=== PATIENT | female | born 1960 | race Caucasian/White ===

== ENCOUNTER → 2017-07-17 | Outpatient (CLI) | payer OTHER | END | disposition home or self-care (01) | LOC: C.LABSPEC 10:55 | PROVIDERS: ATTEND Nurse Practitioner Adult Health | DX: R33.9 Retention of urine, unspecified (principal) ==

== ENCOUNTER → 2017-08-01 | Outpatient (CLI) | payer OTHER ==
--- NOTE | 2017-08-01 10:08 | DIAGNOSTIC IMAGING REPORT ---
ABD/PELVIS NO IV OR ORAL CONT HISTORY: 57 years-old Female R33.9 Incomplete bladder oirfelaxJ62.9 Right flank painno latex acute right flank pain with concern for kidney stones. COMPARISON: None available. TECHNIQUE: Multiple axial CT images of the abdomen and pelvis were obtained without contrast. A dose lowering technique was used consistent with the principals of LELO. FINDINGS: There is minimal subsegmental atelectasis or scarring of the inferior segment lingula. No pneumoperitoneum identified. Imaged inferior cardiac chambers are within normal limits. Trace pericardial effusion. Evaluation of the solid abdominal organs is limited without the use of contrast. There is diffuse fatty infiltration of the liver. The spleen, gallbladder, pancreas and adrenal glands are within normal limits. 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 Bilateral kidneys are within normal limits without renal calculi or hydronephrosis. The bilateral ureters are unremarkable. There is mild wall thickening with surrounding stranding of the urinary bladder. Partially calcified uterine leiomyoma of the right fundal uterus measures 4.1 x 3.7 x 3.5 cm with additional calcified fibroids noted measuring up to 2.2 cm on the left. These appear to be either intramural or subserosal in location. No adnexal mass lesions identified. The abdominal aorta is normal in course and caliber with mild atherosclerotic plaquing. No bulky adenopathy. There is nonspecific prominent vascularity of the mons pubis suggesting venous collaterals, left greater than right. There is no bowel obstruction or focal bowel wall thickening identified. Large bowel and appendix appear to be within normal limits. There are postsurgical changes of the left inguinal region. The bones appear intact. Mild to moderate degenerative disc disease and facet arthropathy. IMPRESSION: 1. Mild wall thickening with surrounding inflammatory stranding of the urinary bladder may reflect cystitis. Correlate with urinalysis. No renal or ureteral calculi or obstructive uropathy. 2. Multiple uterine leiomyomas appear to be intramural or subserosal in location measuring up to 4.1 cm. 3. Normal appendix. The above report was generated using voice recognition software. It may contain grammatical, syntax or spelling errors. Electronically signed by: Larry Contreras M.D. 08/01/2017 10:07 AM Dictated Date/Time: 08/01/2017 9:57 AM
== END | disposition home or self-care (01) ==
LOC: C.CTS 09:25
PROVIDERS: ATTEND Nurse Practitioner Adult Health
DX: R33.9 Retention of urine, unspecified (principal); R10.9 Unspecified abdominal pain; R93.41 Abnormal radiologic findings on diagnostic imaging of renal pelvis, ureter, or bladder; D25.9 Leiomyoma of uterus, unspecified

== ENCOUNTER → 2017-09-03 | Outpatient (CLI) | payer OTHER ==
[~2017-09-03] MED LIST: ASPI81TA28 PO; CIPR1TAB11 PO; CLB200 PO; FLM4 PO; GABA-113 PO; INSDGI SC; NVLGIPEN SQ; SULF800T23 PO
== END | disposition home or self-care (01) ==
LOC: C.PAPS 10:21
PROVIDERS: ATTEND Obstetrics & Gynecology
DX: D25.9 Leiomyoma of uterus, unspecified (principal)

== ENCOUNTER → 2017-09-18 | Outpatient (CLI) | payer OTHER ==
[~2017-09-18] MED LIST changes: -CIPR1TAB11 PO; +FLUC100T4 PO; +LINE1TAB6 PO
--- NOTE | 2017-09-18 08:35 | DIAGNOSTIC IMAGING REPORT ---
L LOWER EXT NONJOINT W/O HISTORY: 57 years-old Female L FT ATT 1ST MET HEAD chronic soft tissue ulcer involves the plantar surface of the left first toe. History of diabetic neuropathy COMPARISON: None available TECHNIQUE: Multiplanar multisequence MRI of the left forefoot was obtained without contrast FINDINGS: The large [id number] special inspector images demonstrate artifact from metallic hardware involving the distal tibia. There is mild skin thickening with subcutaneous edema involving the plantar surface of the first digit at the level of the metatarsal phalangeal joint and proximal phalanx nicely seen on images 6 series 8 and 13 of series 6 measuring approximately 1.7 x 1.6 cm. No associated drainable fluid collection or abscess. The underlying marrow signal of the first digit appears preserved without evidence of osteomyelitis. There are mild degenerative changes of the first MTP joint and articulation of the hallux sesamoids with the first metatarsal head. There is moderate bone marrow edema with marginal spurring, joint space narrowing and chondral thinning involving the second metatarsal head. With mild flattening of the metatarsal head, nicely seen on image 13 series 9 and image 13 series 8. Mild metatarsophalangeal and interphalangeal degenerative changes are seen throughout the remaining digits. Dorsal and interosseous bands of the Lisfranc ligament are identified and are intact. There is moderate atrophy of the intrinsic musculature of the forefoot. No evidence of intermetatarsal bursitis or perineural fibrosis. Imaged flexor and extensor tendons appear intact. No evidence of plantar plate injury. IMPRESSION: 1. Mild skin thickening with mild adjacent subcutaneous edema involves the plantar surface of the first digit at the level of the metatarsophalangeal joint and proximal phalanx correlating with patient history of chronic skin ulcer. No drainable fluid collection, abscess or evidence of first digit osteomyelitis. 2. Moderate marrow edema with marginal spurring, and joint space narrowing involving the second metatarsal head is likely degenerative. Correlate with patient history and clinical examination to exclude post-traumatic etiology. 3. Moderate atrophy involves the intrinsic musculature of the forefoot, likely secondary to chronic denervation changes with diabetes mellitus. The above report was generated using voice recognition software. It may contain grammatical, syntax or spelling errors. Electronically signed by: Larry Contreras M.D. 09/18/2017 8:34 AM Dictated Date/Time: 09/18/2017 8:22 AM
--- NOTE | 2017-09-18 11:08 | Medical Consult ---
Consultation Date of Consultation: Sep 18, 2017. Attending Physician: Jeanette Arshad D.O. History of Present Illness pt presents for initial ID visit, recently had left foot culture that grew E. faecalis and C. albicans. She was placed on vanco last week due to h/o mrsa ( per pt, previously treated in [place]). She has a h/o of gi upset with bactrim, took 2 pills and had gi upset again so stopped. she has reported allergy to amoxicillin but states she can not remember allergy as it has been years since she has taken. She is currently not on abx. had some drainage previously from plantar foot, that culture grew Serritia and she was given levauin with resolution of drainage. foot is dry, no draiange, has neuropahty. no f/c. no abd apin now. all remaining ros reviewed and are negative. Social History Smoking Status: Current Some Day Smoker Drug Use: none Marital Status: Occupation Status: disabled Allergies Coded Allergies: Vancomycin (Verified Allergy, Mild, RASH, 08/20/17) Amoxicillin (Unverified Adverse Reaction, Mild, GI SYMPTOMS, 08/20/17) Sulfamethoxazole w/Trimethoprim (Verified Adverse Reaction, Mild, GI SYMPTOMS, 08/20/17) Physical Exam General Appearance: WD/WN, no apparent distress Head: normocephalic, atraumatic Eyes: normal inspection, EOMI Neck: supple Respiratory/Chest: normal breath sounds, no respiratory distress Cardiovascular: no edema Abdomen/GI: soft Extremities/Musculoskelatal: no calf tenderness, no pedal edema, + pertinent finding (left foot with callus, no draiange, no surroundng edemam erythema, warmth, no tenderness but has neuropahty) Neurologic/Psych: alert, oriented x 3 Skin: normal color, no rash Laboratory Results Item Value Date Time Gram Stain - Final Complete 09/09/17 1330 Ulcer Foot Left Assessment & Plan (1) Foot ulcer Assessment & Plan: discussed options with pt, she does not know pcn allergy, does not want IV abx. will place on fluconazole and zyvox, she states she has rx coverage. will follow in 4 weeks. continue local wound care
== END | disposition home or self-care (01) ==
LOC: C.MRI 07:16
PROVIDERS: ATTEND Emergency Medicine
DX: E11.621 Type 2 diabetes mellitus with foot ulcer (principal); L97.529 Non-pressure chronic ulcer of other part of left foot with unspecified severity

== ENCOUNTER 2017-09-25 09:40 | Emergency (ER) | payer OTHER ==
[~2017-09-25] VITALS: Ht 167.6 cm; Wt 82.0 kg
[2017-09-25 09:40] VITALS: Ht 167.6 cm; Wt 82.0 kg
[~2017-09-25 09:40] MED LIST changes: -SULF800T23 PO
[2017-09-25] MEDS ORDERED: KETOROLAC TROMETHAMINE 30 MG/ML VIAL IV STA (09:56)
[2017-09-25] MEDS ORDERED: NAPR-1169 PO (10:13)
[2017-09-25] MEDS ORDERED: INSU100I2 SC (10:13)
[2017-09-25 10:19] LABS: BASO % 0.2 %; BASO ABS # 0.02 K/uL (0-0.2); COMPLETE YES; EOS % 4.1 %; HEMATOCRIT 44.1 % (37-47); IG% 0.2 %; LYMPH % 13.4 %; LYMPH ABS # 1.61 K/uL (1.2-3.4); MEAN CELL VOLUME 97.8 fL (80-100); MEAN CORPUSCULAR HEMOGLOBIN 33.5 pg (25-34); MEAN CORPUSCULAR HGB CONC 34.2 g/dl (32-36); MONO % 8.3 %; NEUT % 73.8 %; PLATELET COUNT 269 K/uL (130-400); RED BLOOD COUNT 4.51 M/uL (4.2-5.4); WHITE BLOOD COUNT 12.01 K/uL (4.8-10.8)
--- NOTE | 2017-09-25 10:22 | EMERGENCY ROOM VISIT NOTE ---
History Report prepared by Rose: Conor Wallis Under the Supervision of: Dr. Sherwin Sorenson M.D. First contact with patient: 09:44 Stated Complaint: ILLNESS History of Present Illness The patient is a 57 year old female who presents to the Emergency Room with complaints of persistent urinary retention starting a couple of days ago as well as diarrhea. Additionally, she states that she has an infection in her left leg. The patient states that she was at wound clinic this morning, and she was given an antibiotic. She notes that she is also on Flomax for her urinary retention, and she has had a scope done. The patient reports that she has been having abdominal pain and diarrhea 6-7 times per day. The patients ulcer was evaluated by the wound clinic. Wound clinic did not send the patient here, and she came on her own for antibiotics. Wound clinic disagreed with her, and she came here for a second opinion. Source of History: patient Onset: a couple of days ago Position: other (global) Quality: other (urinary retention and diarrhea) Timing: other (persistent) Associated Symptoms: + diarrhea Note: Associated symptoms: Infection in leg Review of Systems See HPI for pertinent positives & negatives. A total of 10 systems reviewed and were otherwise negative. Past Medical & Surgical Medical Problems: (1) Foot ulcer Social History Smoking Status: Current Some Day Smoker Drug Use: none Marital Status: Occupation Status: disabled Current/Historical Medications Scheduled Aspirin (Aspirin Ec), 81 MG PO DAILY Fluconazole (Diflucan), 100 MG PO DAILY Gabapentin (Neurontin), 300 MG PO DAILY Insulin Glargine (Lantus), 62 UNITS SC BID Insulin Lispro (Human) (Humalog Kwikpen), 12 UNITS SC BID Linezolid (Zyvox), 600 MG PO BID Naproxen (Naprosyn), 500 MG PO BID Nitrofurantoin Monohyd Macrocr (Macrobid), 100 MG PO BID Tamsulosin HCl (Tamsulosin HCl), 0.4 MG PO DAILY Allergies Coded Allergies: Vancomycin (Verified Allergy, Mild, RASH, 08/20/17) Amoxicillin (Unverified Adverse Reaction, Mild, GI SYMPTOMS, 08/20/17) Sulfamethoxazole w/Trimethoprim (Verified Adverse Reaction, Mild, GI SYMPTOMS, 08/20/17) Physical Exam Vital Signs Date Time Temp Pulse Resp B/P (MAP) Pulse Ox O2 Delivery O2 Flow Rate FiO2 09/25/17 11:27 77 18 137/66 98 Room Air 09/25/17 09:57 36.4 78 18 145/70 98 Room Air 09/25/17 09:40 36.4 78 18 145/70 98 Room Air Physical Exam GENERAL: Patient is a healthy-appearing well-nourished female HEAD: Normocephalic atraumatic EYES: Ocular movements intact pupils equal and react to light OROPHARYNX mucous membranes are moist no exudates present no erythema or edema present NECK: Supple no nuchal rigidity CHEST: Good equal expansion LUNGS: Clear and equal to auscultation CARDIAC: Normal S1 and S2 ABDOMEN: Soft nontender no guarding BACK: No CVA tenderness EXTREMITIES: Quarter sized ulcer to the left base of the first distal metatarsal. No pain upon palpation normal muscle strength in all groups no clubbing cyanosis or edema NEURO: Patient is following commands and answering questions appropriately. Alert and oriented x3 Cranial Nerves 2-12 grossly intact Medical Decision & Procedures ER Provider Diagnostic Interpretation: Radiology results as stated below per my review and radiologist interpretation: ULTRASOUND KIDNEYS AND BLADDER CLINICAL HISTORY: Pelvic/bladder pain. COMPARISON STUDY: Abdominal CT dated 08/01/2017. TECHNIQUE: Real-time, grayscale, and color flow sonography of the kidneys and bladder is performed. Images are reviewed in the transverse and longitudinal planes. FINDINGS: Kidneys: The kidneys are normal in size and echotexture. The right kidney measures 11.4 cm in length and the left kidney measures 11.9 cm in length. There is no hydronephrosis. No shadowing renal calculi are identified. There is no sonographic evidence of contour deforming renal mass lesion. No perinephric fluid is identified. Bladder: The bladder is decompressed and grossly unremarkable. Ureteral jets were not seen. IMPRESSION: 1. The kidneys are normal in size and without hydronephrosis. 2. The bladder was decompressed and grossly unremarkable. Electronically signed by: Billy Smart M.D. 09/25/2017 10:47 AM Dictated Date/Time: 09/25/2017 10:41 AM KUB HISTORY: Pt c/o suprapubic pain COMPARISON: Abdomen and pelvis CT 08/01/2017. FINDINGS: The bowel gas pattern is unremarkable. There are no dilated loops of small bowel to suggest an obstruction. No renal calculi. No ureteral calculi. No pneumoperitoneum or pneumatosis. Calcified uterine fibroid is again noted within the right deep pelvis. This measures 3.8 cm. Moderate well-formed stool seen within the colon. IMPRESSION: No renal or ureteral stones. Calcified uterine fibroid is again noted. Electronically signed by: Jc Villagran M.D. 09/25/2017 11:02 AM Dictated Date/Time: 09/25/2017 11:00 AM Laboratory Results 09/25/17 10:05 Red Blood Count 4.51, Mean Corpuscular Volume 97.8, Mean Corpuscular Hemoglobin 33.5, Mean Corpuscular Hemoglobin Concent 34.2, Mean Platelet Volume 10.0, Neutrophils (%) (Auto) 73.8, Lymphocytes (%) (Auto) 13.4, Monocytes (%) (Auto) 8.3, Eosinophils (%) (Auto) 4.1, Basophils (%) (Auto) 0.2, Neutrophils # (Auto) 8.86, Lymphocytes # (Auto) 1.61, Monocytes # (Auto) 1.00, Eosinophils # (Auto) 0.49, Basophils # (Auto) 0.02 09/25/17 10:05 Test 09/25/17 10:05 09/25/17 10:15 09/25/17 12:02 White Blood Count 12.01 K/uL (4.8-10.8) Red Blood Count 4.51 M/uL (4.2-5.4) Hemoglobin 15.1 g/dL (12.0-16.0) Hematocrit 44.1 % (37-47) Mean Corpuscular Volume 97.8 fL (80-100) Mean Corpuscular Hemoglobin 33.5 pg (25-34) Mean Corpuscular Hemoglobin Concent 34.2 g/dl (32-36) Platelet Count 269 K/uL (130-400) Mean Platelet Volume 10.0 fL (7.4-10.4) Neutrophils (%) (Auto) 73.8 % Lymphocytes (%) (Auto) 13.4 % Monocytes (%) (Auto) 8.3 % Eosinophils (%) (Auto) 4.1 % Basophils (%) (Auto) 0.2 % Neutrophils # (Auto) 8.86 K/uL (1.4-6.5) Lymphocytes # (Auto) 1.61 K/uL (1.2-3.4) Monocytes # (Auto) 1.00 K/uL (0.11-0.59) Eosinophils # (Auto) 0.49 K/uL (0-0.5) Basophils # (Auto) 0.02 K/uL (0-0.2) RDW Standard Deviation 45.0 fL (36.4-46.3) RDW Coefficient of Variation 12.6 % (11.5-14.5) Immature Granulocyte % (Auto) 0.2 % Immature Granulocyte # (Auto) 0.03 K/uL (0.00-0.02) Anion Gap 6.0 mmol/L (3-11) Est Creatinine Clear Calc Drug Dose 55.9 ml/min Estimated GFR () 59.1 Estimated GFR (Non- 51.0 BUN/Creatinine Ratio 20.9 (10-20) Calcium Level 9.4 mg/dl (8.5-10.1) Total Bilirubin 0.4 mg/dl (0.2-1) Direct Bilirubin < 0.1 mg/dl (0-0.2) Aspartate Amino Transf (AST/SGOT) 14 U/L (15-37) Alanine Aminotransferase (ALT/SGPT) 35 U/L (12-78) Alkaline Phosphatase 111 U/L (45-117) Total Protein 7.6 gm/dl (6.4-8.2) Albumin 3.5 gm/dl (3.4-5.0) Lipase 178 U/L (73-393) Total Creatine Kinase 209 U/L (26-192) Urine Color ORANGE Urine Appearance TURBID (CLEAR) Urine pH 5.0 (4.5-7.5) Urine Specific [place] 1.024 (1.000-1.030) Urine Protein 2+ (NEG) Urine Glucose (UA) NEG (NEG) Urine Ketones NEG (NEG) Urine Occult Blood 3+ (NEG) Urine Nitrite NEG (NEG) Urine Bilirubin NEG (NEG) Urine Urobilinogen NEG (NEG) Urine Leukocyte Esterase LARGE (NEG) Urine WBC (Auto) >30 /hpf (0-5) Urine RBC (Auto) >30 /hpf (0-4) Urine Hyaline Casts (Auto) 1-5 /lpf (0-5) Urine Epithelial Cells (Auto) >30 /lpf (0-5) Urine Bacteria (Auto) NEG (NEG) Urine Pathogenic Casts /lpf (0) Urine Yeast (Auto) BUDDING (NONE PRSENT) Labs reviewed by ED physician. Medications Administered Medications (Trade) Dose Ordered Sig/Aaron Route Start Time Stop Time Status Last Admin Dose Admin Ketorolac Tromethamine (Toradol Inj) 30 mg NOW STAT IV 09/25/17 09:56 09/25/17 09:59 DC 09/25/17 10:07 30 MG Dalbavancin 1500 mg/Dextrose 325 ml @ 650 mls/hr TODAY@1145 IV 09/25/17 11:45 09/25/17 23:00 09/25/17 11:58 650 MLS/HR Ceftriaxone Sodium (Rocephin Inj) 1 gm NOW STAT IV 09/25/17 12:43 09/25/17 12:44 DC 09/25/17 12:55 1 GM ED Course 0944: Past medical records reviewed. The patient was evaluated in room B7. A complete history and physical examination was performed. 0956: Toradol 30mg IV 1010: I discussed the patient's case with Dr. Fajardo - Infectious Disease, and she recommends giving the patient a one time dose of IV Dalvance 1018: I reevaluated the patient, and she is agreeable to the Dalvance. 1108: I revaluated the patient, and she was doing much better 1145: Dalbavancin 1500mg/Dextrose 325ml @ 650ml/hr IV 1242: Upon reexamination the patient is doing well. I discussed results and treatment plan with the patient. She verbalizes agreement and understanding. The patient is ready for discharge. 1243: Rocephin 1gm IV Medical Decision Differential diagnosis: Etiologies such as cellulitis, abscess, MRSA infection, DVT, necrotizing fasciitis, dermatitis, drug eruption, as well as others were entertained. This is a 57-year-old female who presents to the emergency department complaining of needing antibiotics for a diabetic foot wound. The patient is currently on oral linezolid at home however is refusing to take it due to having diarrhea. She was being seen in wound clinic when she came to the emergency department for a second opinion that she did not wish to wait for infectious disease doctor to call back for wound clinic. The patient was observed for a total of 3 hours in the emergency department and at no time was she able to provide a stool sample. In addition serial abdominal examinations were performed on the patient in the emergency department and at no time did the patient exhibited a surgical abdomen. I explained to the patient that there is no IV fluids available due to the IV fluid shortage. She was given oral fluids to replenish herself in the emergency department. I also discussed the case with infectious disease who felt that the patient receive a one-time dose of IV Delvance with needed follow up in the clinic. In addition the patient is also complaining of urinary symptoms and has a large amount of blood in her urine. She has no evidence of stone on ultrasound. The patient was not happy she was not receiving IV fluids however I feel she is well enough to be discharged home. She will be placed on Macrobid at home and received Rocephin for her urine. I will note that the patient is early on fluconazole for yeast. Medication Reconcilliation Current Medication List: was personally reviewed by me Blood Pressure Screening Patient's blood pressure: Elevated blood pressure Blood pressure disposition: Elevated BP felt to be situational Consults Time Called: [phone] Consulting Physician: Dr. Fajardo - Infectious Disease Returned Call: [phone] I discussed the patient's case with Dr. Fajardo - Infectious Disease, and she recommends giving the patient a one time dose of IV Dalvance Impression Primary Impression: Foot ulcer Additional Impression: UTI (urinary tract infection) Scribe Attestation The scribe's documentation has been prepared under my direction and personally reviewed by me in its entirety. I confirm that the note above accurately reflects all work, treatment, procedures, and medical decision making performed by me. Departure Information Dispostion Home / Self-Care Prescriptions Nitrofurantoin Monohyd Macrocr (Macrobid) 100 Mg Cap 100 MG PO BID for 7 Days, #14 CAP Prov: Sherwin Sorenson MD 09/25/17 Referrals Rach Jiménez DO (PCP) Forms HOME CARE DOCUMENTATION FORM, IMPORTANT VISIT INFORMATION, WORK / SCHOOL INSTRUCTIONS Patient Instructions Diabetic Foot Ulcer Dc, ED UTI Cystitis Female, My [facility] Additional Instructions Follow up with Dr Beltran's office (Urology) Follow up with Dr Gibbs's office and wound clinic (ID) Radiographs and CTs will be reread by a radiologist in the morning. Culture results are usually available in approx 48 hours You have been examined and treated today on an emergency basis only. This is not a substitute for, or an effort to provide, complete comprehensive medical care. It is impossible to recognize and treat all injuries or illnesses in a single emergency department visit. It is therefore important that you follow up closely with Dr Jiménez. Call as soon as possible for an appointment. Thank you for your time and consideration. I look forward to speaking with you again soon. Please don't hesitate to call us if you have any questions. Problem Qualifiers Primary Impression: Foot ulcer Laterality: left Non-pressure ulcer stage: limited to breakdown of skin Qualified Codes: L97.521 - Non-pressure chronic ulcer of other part of left foot limited to breakdown of skin Additional Impression: UTI (urinary tract infection) Urinary tract infection type: acute cystitis Hematuria presence: with hematuria Qualified Codes: N30.01 - Acute cystitis with hematuria
[2017-09-25 10:36] LABS: ALT/SGPT 35 U/L (12-78); BLOOD UREA NITROGEN 24 mg/dl (7-18); BUN/CREATININE RATIO 20.9 (10-20); CALCIUM 9.4 mg/dl (8.5-10.1); CARBON DIOXIDE 27 mmol/L (21-32); CHLORIDE 106 mmol/L (98-107); CREATININE 1.17 mg/dl (0.60-1.20); GLUCOSE 113 mg/dl (70-99); SODIUM 139 mmol/L (136-145)
[2017-09-25 10:39] LABS: ALKALINE PHOSPHATASE 111 U/L (45-117); AST/SGOT 14 U/L (15-37)
--- NOTE | 2017-09-25 10:48 | DIAGNOSTIC IMAGING REPORT ---
ULTRASOUND KIDNEYS AND BLADDER CLINICAL HISTORY: Pelvic/bladder pain. COMPARISON STUDY: Abdominal CT dated 08/01/2017. TECHNIQUE: Real-time, grayscale, and color flow sonography of the kidneys and bladder is performed. Images are reviewed in the transverse and longitudinal planes. FINDINGS: Kidneys: The kidneys are normal in size and echotexture. The right kidney measures 11.4 cm in length and the left kidney measures 11.9 cm in length. There is no hydronephrosis. No shadowing renal calculi are identified. There is no sonographic evidence of contour deforming renal mass lesion. No perinephric fluid is identified. Bladder: The bladder is decompressed and grossly unremarkable. Ureteral jets were not seen. IMPRESSION: 1. The kidneys are normal in size and without hydronephrosis. 2. The bladder was decompressed and grossly unremarkable. Electronically signed by: Billy Smart M.D. 09/25/2017 10:47 AM Dictated Date/Time: 09/25/2017 10:41 AM
--- NOTE | 2017-09-25 11:04 | DIAGNOSTIC IMAGING REPORT ---
KUB HISTORY: Pt c/o suprapubic pain COMPARISON: Abdomen and pelvis CT 08/01/2017. FINDINGS: The bowel gas pattern is unremarkable. There are no dilated loops of small bowel to suggest an obstruction. No renal calculi. No ureteral calculi. No pneumoperitoneum or pneumatosis. Calcified uterine fibroid is again noted within the right deep pelvis. This measures 3.8 cm. Moderate well-formed stool seen within the colon. IMPRESSION: No renal or ureteral stones. Calcified uterine fibroid is again noted. Electronically signed by: Jc Villagran M.D. 09/25/2017 11:02 AM Dictated Date/Time: 09/25/2017 11:00 AM
[2017-09-25] MEDS ORDERED: DALBAVANCIN IV 1,500 MG in DEXTROSE 5% 250ML 250 ML IV SCH (11:45)
[2017-09-25 12:19] LABS: URINE APPEARANCE TURBID (CLEAR); URINE COLOR ORANGE; URINE EPITHELIAL CELL AUTO >30 /lpf (0-5); URINE NITRITE NEG (NEG); URINE SPECIFIC GRAVITY 1.024 (1.000-1.030); UROBILINOGEN NEG (NEG); ZZUR CULT IF INDIC CLEAN CATCH YES
[2017-09-25 12:21] LABS: MANUAL MICROSCOPIC REQUIRED? NO; REVIEW REQ? YES
[2017-09-25 12:22] LABS: URINE BILIRUBIN NEG (NEG)
[2017-09-25] MEDS ORDERED: CEFTRIAXONE SOD INJ 1 GM ADDVIAL IV STA (12:43)
[2017-09-25] MEDS ORDERED: NITR-5 PO (12:45)
[2017-09-25 13:58] VITALS: BP 141/70; PULSE 77; TEMP 36.4; O2SAT 98
--- NOTE | 2017-09-27 16:57 | Pharmacy Progress Note ---
ED Pharmacist Culture FollowUp Date of Service: Sep 27, 2017. Patient's urine cx from 09/25 is growing klebsiella pneumoniae and non-topher albicans yeast. She had been dx with UTI on 09/25 and discharged with new Rx for Nitrofurantoin 100mg BID x 7 days. The klebsiella pn is intermediate sensitivity to nitrofurantoin. Reviewed with Dr Sorenson, will have patient stop taking Nitrofurantoin and begin Keflex 500mg PO BID x 7 days. The non-topher albicans yeast may or may not be covered by the fluconazole that the patient was placed on by infectious disease. Oral options for treating non-topher albicans are limited. Plan is to continue the current treatment at this time. However results will forwarded to her Urologist at [facility]. I spoke with the patient today over the phone to explain the urine cx results. I explained she had klebsiella bacteria and yeast growing in the culture. I explained she was to stop taking the nitrofurantoin and we would call in a new Rx for her for Keflex. She requested the Rx be called to [facility] ), which I did. I spoke directly to the pharmacist to give the Rx for Keflex 500mg PO BID x 7 days, no refills, auth by Dr Sorensno. I attempted to contact the [facility] to notify them of the culture results however their office closed at 2 pm today and will not be open until Saturday. I did however fax over the culture results to [phone].
== END 2017-09-25 14:00 | disposition home or self-care (01) ==
LOC: EDBD 09:40 → C.EDB 09:42
DX: L97.521 Non-pressure chronic ulcer of other part of left foot limited to breakdown of skin (principal); N30.01 Acute cystitis with hematuria; R19.7 Diarrhea, unspecified; F17.200 Nicotine dependence, unspecified, uncomplicated; Z98.890 Other specified postprocedural states; Z79.82 Long term (current) use of aspirin

== ENCOUNTER → 2017-10-08 | Outpatient (CLI) | payer OTHER ==
[~2017-10-08] MED LIST changes: +CEPH500C PO; -CLB200 PO; +DALB1SOL; +INSU100I2 SC; +NAPR-1169 PO; -NVLGIPEN SQ
[2017-10-08 11:50] LABS: BASO % 0.4 %; BASO ABS # 0.04 K/uL (0-0.2); COMPLETE YES; EOS % 5.8 %; HEMATOCRIT 40.5 % (37-47); IG% 0.3 %; LYMPH % 18.4 %; LYMPH ABS # 1.83 K/uL (1.2-3.4); MEAN CELL VOLUME 98.5 fL (80-100); MEAN CORPUSCULAR HEMOGLOBIN 32.4 pg (25-34); MEAN CORPUSCULAR HGB CONC 32.8 g/dl (32-36); MEAN PLATELET VOLUME 10.5 fL (7.4-10.4); MONO % 9.1 %; PLATELET COUNT 271 K/uL (130-400); RED BLOOD COUNT 4.11 M/uL (4.2-5.4); WHITE BLOOD COUNT 9.92 K/uL (4.8-10.8)
[2017-10-08 12:07] LABS: URINE APPEARANCE TURBID (CLEAR); URINE BILIRUBIN NEG (NEG); URINE COLOR YELLOW; URINE EPITHELIAL CELL AUTO >30 /lpf (0-5); URINE NITRITE NEG (NEG); URINE SPECIFIC GRAVITY 1.023 (1.000-1.030); UROBILINOGEN NEG (NEG)
[2017-10-08 12:08] LABS: MANUAL MICROSCOPIC REQUIRED? NO; REVIEW REQ? YES
[2017-10-08 12:21] LABS: ALT/SGPT 26 U/L (12-78); AST/SGOT 13 U/L (15-37); BLOOD UREA NITROGEN 25 mg/dl (7-18); BUN/CREATININE RATIO 21.6 (10-20); CALCIUM 9.1 mg/dl (8.5-10.1); CARBON DIOXIDE 29 mmol/L (21-32); CHLORIDE 108 mmol/L (98-107); CREATININE 1.15 mg/dl (0.60-1.20); GLUCOSE 70 mg/dl (70-99); POTASSIUM 4.1 mmol/L (3.5-5.1); SODIUM 141 mmol/L (136-145)
[2017-10-08 12:25] LABS: RATIO 93.9 mcg/mg (0-30.0)
[2017-10-08 12:32] LABS: ALB/GLOB RATIO 0.9 (0.9-2); ALKALINE PHOSPHATASE 107 U/L (45-117); CHOLESTEROL 216 mg/dl (0-200); CHOLESTEROL/HDL RATIO 5.1; HDL CHOLESTEROL 42 mg/dl; LDL CHOLESTEROL CALCULATED 140 mg/dl; TRIGLYCERIDES 169 mg/dl (0-150); VERY LOW DENSITY LIPOPROT CALC 34 mg/dl
[2017-10-08 12:46] LABS: ESTIMATED AVERAGE GLUCOSE 272 mg/dl; HA1C FLAG Normal (Normal)
== END | disposition home or self-care (01) ==
LOC: C.LABSPEC 08:29
PROVIDERS: ATTEND Family Medicine
DX: E11.9 Type 2 diabetes mellitus without complications (principal); R30.0 Dysuria

== ENCOUNTER → 2017-10-11 | Outpatient (CLI) | payer OTHER ==
[~2017-10-11] MED LIST changes: +ATOR-22 PO; +CHOL1000 PO; +INSU1INJ32 INJ; -NAPR-1169 PO; +NAPR-22 PO; +PANT40TA PO
--- NOTE | 2017-10-11 09:48 | DIAGNOSTIC IMAGING REPORT ---
ULTRASOUND RIGHT UPPER QUADRANT ABDOMEN CLINICAL HISTORY: Generalized abdominal pain. COMPARISON STUDY: Abdominal CT dated 08/01/2017. TECHNIQUE: Real-time, grayscale, and color flow sonography of the right upper quadrant of the abdomen was performed. Images are reviewed in the transverse and longitudinal planes. FINDINGS: Liver: The liver is mildly enlarged and demonstrates heterogeneously increased echotexture consistent with hepatic steatosis. There is no intrahepatic biliary ductal dilatation. The main portal vein is patent. Gallbladder: The gallbladder is normal in appearance. No gallstones are identified. There is no gallbladder wall thickening or pericholecystic fluid. A sonographic Singh's sign is reportedly absent. The common bile duct measures up to 0.5 cm in diameter. Pancreas: Visualized portions of the pancreatic head and body are normal in appearance. Right kidney: Survey images of the right kidney demonstrate normal size and echotexture. There is no hydronephrosis. Ascites: None. IMPRESSION: 1. No acute sonographic abnormality is identified in the right upper quadrant. No gallstones are seen. 2. Hepatomegaly and hepatic steatosis. Electronically signed by: Billy Smart M.D. 10/11/2017 9:46 AM Dictated Date/Time: 10/11/2017 9:45 AM
== END | disposition home or self-care (01) ==
LOC: C.ULTR 08:42
PROVIDERS: ATTEND Family Medicine
DX: R16.0 Hepatomegaly, not elsewhere classified (principal); K76.0 Fatty (change of) liver, not elsewhere classified

== ENCOUNTER → 2017-10-17 | Outpatient (CLI) | payer OTHER ==
[2017-10-17 13:10] LABS: BASO % 0.3 %; BASO ABS # 0.05 K/uL (0-0.2); EOS % 3.7 %; EOS ABS # 0.62 K/uL (0-0.5); HEMATOCRIT 42.5 % (37-47); HEMOGLOBIN 14.3 g/dL (12.0-16.0); IG# 0.07 K/uL (0.00-0.02); LYMPH % 9.3 %; LYMPH ABS # 1.55 K/uL (1.2-3.4); MEAN CELL VOLUME 97.3 fL (80-100); MEAN CORPUSCULAR HEMOGLOBIN 32.7 pg (25-34); MEAN CORPUSCULAR HGB CONC 33.6 g/dl (32-36); MEAN PLATELET VOLUME 10.6 fL (7.4-10.4); MONO % 7.2 %; NEUT % 79.1 %; NEUT ABS # 13.25 K/uL (1.4-6.5); PLATELET COUNT 290 K/uL (130-400); RED CELL DISTRIBUTION WIDTH CV 13.2 % (11.5-14.5); WHITE BLOOD COUNT 16.74 K/uL (4.8-10.8)
== END | disposition home or self-care (01) ==
LOC: C.LABPBG 08:33
PROVIDERS: ATTEND Family Medicine
DX: E11.621 Type 2 diabetes mellitus with foot ulcer (principal)

== ENCOUNTER → 2017-10-25 | Outpatient (CLI) | payer OTHER ==
[~2017-10-25] MED LIST changes: -ATOR-22 PO; -CHOL1000 PO; -INSU1INJ32 INJ; +NAPR-1169 PO; -NAPR-22 PO; -PANT40TA PO
== END | disposition home or self-care (01) ==
LOC: C.LABSPEC 14:22
PROVIDERS: ATTEND Urology
DX: R30.0 Dysuria (principal); R32 Unspecified urinary incontinence

== ENCOUNTER → 2017-12-02 | Outpatient (CLI) | payer OTHER ==
[~2017-12-02] MED LIST changes: -CEPH500C PO; +CHOL1000 PO; -LINE1TAB6 PO; +PANT40TA PO
[2017-12-02 17:35] LABS: BASO % 0.4 %; BASO ABS # 0.04 K/uL (0-0.2); EOS % 5.7 %; EOS ABS # 0.55 K/uL (0-0.5); HEMATOCRIT 42.2 % (37-47); HEMOGLOBIN 14.2 g/dL (12.0-16.0); IG# 0.04 K/uL (0.00-0.02); LYMPH % 14.1 %; LYMPH ABS # 1.36 K/uL (1.2-3.4); MEAN CELL VOLUME 96.1 fL (80-100); MEAN CORPUSCULAR HEMOGLOBIN 32.3 pg (25-34); MEAN CORPUSCULAR HGB CONC 33.6 g/dl (32-36); MEAN PLATELET VOLUME 10.9 fL (7.4-10.4); MONO % 6.8 %; MONO ABS # 0.66 K/uL (0.11-0.59); NEUT % 72.6 %; NEUT ABS # 6.99 K/uL (1.4-6.5); PLATELET COUNT 259 K/uL (130-400); RED CELL DISTRIBUTION WIDTH CV 13.2 % (11.5-14.5); RED CELL DISTRIBUTION WIDTH SD 46.2 fL (36.4-46.3); WHITE BLOOD COUNT 9.64 K/uL (4.8-10.8)
[2017-12-02 17:47] LABS: BLOOD UREA NITROGEN 21 mg/dl (7-18); CALCIUM 8.9 mg/dl (8.5-10.1); CARBON DIOXIDE 26 mmol/L (21-32); CREATININE 0.95 mg/dl (0.60-1.20); GLUCOSE,FASTING 119 mg/dl (70-99); POTASSIUM 4.3 mmol/L (3.5-5.1); SODIUM 140 mmol/L (136-145); URIC ACID 6.7 mg/dl (2.6-7.2)
[2017-12-03 06:16] LABS: HEMOGLOBIN A1C 9.7 % (4.5-5.6)
== END | disposition home or self-care (01) ==
LOC: C.LABPBG 11:35
PROVIDERS: ATTEND Podiatrist Foot & Ankle Surgery
DX: L97.521 Non-pressure chronic ulcer of other part of left foot limited to breakdown of skin (principal); E11.621 Type 2 diabetes mellitus with foot ulcer

== ENCOUNTER → 2017-12-13 | Outpatient (CLI) | payer OTHER | END | disposition home or self-care (01) | LOC: C.LABSPEC 14:52 | PROVIDERS: ATTEND Urology | DX: N39.0 Urinary tract infection, site not specified (principal) ==

== ENCOUNTER → 2017-12-27 | Outpatient (CLI) | payer OTHER ==
[2017-12-27 16:48] LABS: BASO % 0.4 %; BASO ABS # 0.04 K/uL (0-0.2); EOS % 5.7 %; EOS ABS # 0.65 K/uL (0-0.5); HEMATOCRIT 40.4 % (37-47); HEMOGLOBIN 13.6 g/dL (12.0-16.0); IG# 0.05 K/uL (0.00-0.02); LYMPH % 13.4 %; LYMPH ABS # 1.52 K/uL (1.2-3.4); MEAN CELL VOLUME 94.6 fL (80-100); MEAN CORPUSCULAR HEMOGLOBIN 31.9 pg (25-34); MEAN CORPUSCULAR HGB CONC 33.7 g/dl (32-36); MEAN PLATELET VOLUME 10.8 fL (7.4-10.4); MONO % 7.6 %; MONO ABS # 0.86 K/uL (0.11-0.59); NEUT % 72.5 %; NEUT ABS # 8.24 K/uL (1.4-6.5); PLATELET COUNT 282 K/uL (130-400); RED CELL DISTRIBUTION WIDTH CV 12.9 % (11.5-14.5); RED CELL DISTRIBUTION WIDTH SD 44.6 fL (36.4-46.3); WHITE BLOOD COUNT 11.36 K/uL (4.8-10.8)
== END | disposition home or self-care (01) ==
LOC: C.LABPBG 13:49
PROVIDERS: ATTEND Podiatrist Foot & Ankle Surgery
DX: L97.521 Non-pressure chronic ulcer of other part of left foot limited to breakdown of skin (principal)

== ENCOUNTER → 2018-01-10 | Outpatient (CLI) | payer OTHER | END | disposition home or self-care (01) | LOC: C.LABSPEC 09:00 | PROVIDERS: ATTEND Family Medicine | DX: R30.0 Dysuria (principal) ==

== ENCOUNTER → 2018-02-06 | Outpatient (CLI) | payer OTHER ==
[2018-02-07 06:53] LABS: HEMOGLOBIN A1C 9.8 % (4.5-5.6)
== END | disposition home or self-care (01) ==
LOC: C.LABPBG 11:31
PROVIDERS: ATTEND Podiatrist Foot & Ankle Surgery
DX: L97.521 Non-pressure chronic ulcer of other part of left foot limited to breakdown of skin (principal)

== ENCOUNTER → 2018-02-11 | Outpatient (CLI) | payer OTHER | END | disposition home or self-care (01) | LOC: C.RDSM 14:19 | PROVIDERS: ATTEND Physical Medicine & Rehabilitation Sports Medicine | DX: M17.0 Bilateral primary osteoarthritis of knee (principal) ==

== ENCOUNTER → 2018-02-19 | Outpatient (CLI) | payer OTHER | END | disposition home or self-care (01) | LOC: C.LABSPEC 10:04 | PROVIDERS: ATTEND Family Medicine | DX: R33.9 Retention of urine, unspecified (principal) ==

== ENCOUNTER → 2018-05-12 | Outpatient (CLI) | payer OTHER ==
[~2018-05-12] MED LIST changes: +ATOR-22 PO; -DALB1SOL; -FLM4 PO; -FLUC100T4 PO; -INSDGI SC; +INSU1INJ32 INJ; -NAPR-1169 PO; +NAPR-22 PO; -PANT40TA PO
[2018-05-12 17:18] LABS: BLOOD UREA NITROGEN 17 mg/dl (7-18); CALCIUM 8.4 mg/dl (8.5-10.1); CARBON DIOXIDE 29 mmol/L (21-32); CHOLESTEROL 241 mg/dl (0-200); CREATININE 1.01 mg/dl (0.60-1.20); GLUCOSE 228 mg/dl (70-99); LDL CHOLESTEROL CALCULATED 130 mg/dl; POTASSIUM 4.2 mmol/L (3.5-5.1); SODIUM 138 mmol/L (136-145)
[2018-05-13 05:58] LABS: HEMOGLOBIN A1C 8.6 % (4.5-5.6)
== END | disposition home or self-care (01) ==
LOC: C.LABPBG 11:35
PROVIDERS: ATTEND Nurse Practitioner Family
DX: E11.65 Type 2 diabetes mellitus with hyperglycemia (principal); I10 Essential (primary) hypertension; E78.00 Pure hypercholesterolemia, unspecified; R14.0 Abdominal distension (gaseous); R10.9 Unspecified abdominal pain